=== PATIENT | male | born 1990 | race Two or more races ===

== ENCOUNTER 2023-09-10 15:40 | Emergency (ER) | payer MEDICAID, OTHER ==
[~2023-09-10] VITALS: Ht 177.8 cm; Wt 77.2 kg
[2023-09-10 16:35] VITALS: BP 112/62; PULSE 75; RESP 18; O2SAT 99
[2023-09-10] MEDS ORDERED: IBUP-1456 PO (17:19)
[2023-09-10] MEDS ORDERED: IBUPROFEN 800 MG TAB PO ONE (17:30)
== END 2023-09-10 17:40 | disposition home or self-care (01) ==
LOC: ER 15:40
DX: S82.831A Other fracture of upper and lower end of right fibula, initial encounter for closed fracture (principal); M25.371 Other instability, right ankle; Z79.1 Long term (current) use of non-steroidal anti-inflammatories (NSAID); X50.1XXA Overexertion from prolonged static or awkward postures, initial encounter; Y93.89 Activity, other specified; Y92.89 Other specified places as the place of occurrence of the external cause; Y99.8 Other external cause status
CPT/HCPCS: 73610